=== PATIENT | male | born 1975 | race Caucasian/White ===

== ENCOUNTER 2019-10-11 09:35 | Emergency (ER) | payer OTHER, SELFPAY ==
--- NOTE | ~2019-10-11 | XR_ITS ---
XR ankle RT min 3V DATE: 10/11/2019 10:02 INDICATION: Twisted right ankle. Lateral pain. History of clubfoot. TECHNIQUE: 4 views COMPARISON: None FINDINGS: Minimal plantar calcaneal enthesopathy. No recent fracture or dislocation. No periosteal reaction or bone destruction. IMPRESSION: No recent fracture or dislocation Reviewed, dictated and finalized at location B.
--- NOTE | 2019-10-11 09:46 | ED.GENADULT ---
HPI - General Adult General Chief complaint: Extremity Injury, Lower Stated complaint: Sprained right ankle Source: patient and RN notes reviewed Mode of arrival: ambulatory Limitations: no limitations History of Present Illness HPI narrative: This is a 44 years old male presents to the office for an evaluation of right ankle injury since yesterday. He first rolled his ankle walking down on the ground at 11 AM and then again rolled his ankle in the evening fell into a hole. Complaint of constant pain and worse with weightbearing. Denies numbness or tingling. 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 He took ibuprofen and ice for pain this morning. Denies any other injury or dizziness prior to injury. Related Data Home Medications Medication Instructions Recorded Confirmed aspirin 06/25/19 citalopram mg 06/25/19 lisinopril-hydrochlorothiazide tablet 06/25/19 atorvastatin 20 mg PO DAILY 10/11/19 10/11/19 metformin 500 mg PO DAILY 10/11/19 10/11/19 venlafaxine 37.5 mg PO DAILY 10/11/19 10/11/19 Allergies Allergy/AdvReac Type Severity Reaction Status Date / Time No Known Allergies Allergy Unverified 09/06/14 14:46 Review of Systems Review of Systems: Narrative: CONSTITUTIONAL: Denies feeling ill CARDIOVASCULAR: Denies chest pain RESPIRATORY: Denies cough GASTROINTESTINAL: Denies nausea, vomiting GENITOURINARY: Denies urinary/bowel issue SKIN: Denies rash MUSCULOSKELETAL: Reports right ankle pain/swelling NEUROLOGIC: Denies numbness PMFSH Past Medical History Medical History (Updated 10/11/19 @ 09:57 by DUNIA Rajan) Arthritis Asthma History of hand fracture HLD (hyperlipidemia) HTN (hypertension) Surgical History Surgical History (Updated 10/11/19 @ 09:48 by DUNIA Rajan) Hx of neck surgery Comments At time of signature, I agree with nursing past medical, surgical, social and family history. There is no relevant family history pertinent to the presenting complaint. Exam Narrative: Exam Narrative: GENERAL: This is a well-nourished, well-developed patient, in no apparent distress. CARDIOVASCULAR: Regular rate and rhythm without murmurs, gallops, or rubs. RESPIRATORY: Clear to auscultation. Breath sounds equal bilaterally. No wheezes, rales, or rhonchi. GASTROINTESTINAL: Abdomen soft, non-tender, nondistended. Bowel sounds are active. No hepato-splenomegaly, or palpable masses. No guarding. SKIN: warm, intact with no suspicious lesions or rash, good texture and turgor. NEURO: awake, alert, and oriented to person, place and time. There were no obvious focal neurologic abnormalities. EXTREMITIES: Left foot intact. Right ankle is swollen and tender over the lateral aspect but the skin is intact and there is no ligamentous instability. There is no deformity. The foot and toes are warm and well-perfused. Sensation to pain and light touch is intact. Course Vital Signs Vital signs: Vital Signs Temperature 96.9 F L 10/11/19 09:50 Pulse Rate 86 10/11/19 09:50 Respiratory Rate 16 10/11/19 09:50 Blood Pressure 111/66 10/11/19 09:50 Pulse Oximetry 99 10/11/19 09:50 Temperature 96.9 F L 10/11/19 09:50 Pulse Rate 86 10/11/19 09:50 Respiratory Rate 16 10/11/19 09:50 Blood Pressure 111/66 10/11/19 09:50 Pulse Oximetry 99 10/11/19 09:50 Medical Decision Making MDM Narrative Medical decision making narrative: Discharge instructions reviewed with patient, as well as provided in writing per nursing staff. The instructions also include specific and strict return/GO TO THE ER as well as f/u information. All questions have been answered, and the patient deny any further questions with discharge and discharge plan. Differential Diagnosis Differential Diagnosis: sprain/strain, contusion, fracture, muscle pain Vital Signs Vital Signs: Vital Signs Temperature 96.9 F L 10/11/19 09:50 Pulse Rate 86 10/11/19 09:50 R
[2019-10-11 09:50] VITALS: BP 111/66; PULSE 86; RESP 16; TEMP 36.1; O2SAT 99
== END 2019-10-11 10:15 | disposition home or self-care (01) ==
PROVIDERS: Emergency Provider Nurse Practitioner; PCP Internal Medicine
DX: S99.911A Unspecified injury of right ankle, initial encounter (principal); X50.9XXA Other and unspecified overexertion or strenuous movements or postures, initial encounter; M19.90 Unspecified osteoarthritis, unspecified site; J45.909 Unspecified asthma, uncomplicated; E78.5 Hyperlipidemia, unspecified; I10 Essential (primary) hypertension
CPT/HCPCS: 73610; 99213; G0463

== ENCOUNTER 2022-01-15 14:48 | Outpatient (CLI) | payer OTHER, SELFPAY ==
--- NOTE | ~2022-01-15 | CT_ITS ---
EXAMINATION: CT cervical spine wo con DATE: 01/15/2022 15:05 INDICATION: Cervicalgia. Broken cervical fusion instrumentation. TECHNIQUE: Computed tomography (CT) of the cervical spine was performed without intravenous contrast. Automated exposure control and iterative reconstruction technique were employed. The dose-length pro duct was 571.17 mGy-cm. COMPARISON: Chest CT dated 04/06/2019 FINDINGS: Mild cervical kyphosis. C5-C7 anterior spinal fusion with anterior plate and screw fixation. There ar e fractures of the screws at both C5 and C7. The C7 screw fractures have been present at least since prior CT dated 04/06/2019. Which are both angled with the apex angulation directed towards the central C6 vertebral body which suggests increased kyphotic angulation of the vertebral bodies relative to t he alignment existing at the time of the initial fusion. There appears be solid osseous fusion betwee n C6 and C7. There is a thin irregular lucency between the C5 and C6 vertebral bodies suggesting thes e remain ununited. Unfused vertebral body heights are normal. Minimal disc height loss at C4-C5. Mild disc height loss at T1-T2 and T2-T3. Cervical soft tissues are unremarkable. Visualized apices of th e lungs are clear. The following disc levels are specifically discussed: C2-C3: There is mild bilateral uncovertebral joint osteoarthritis. There is moderate right and severe left facet joint osteoarthritis. There is mild left neural foraminal stenosis. There is no central c anal stenosis. C3-C4: There is mild bilateral uncovertebral joint osteoarthritis. There is mild bilateral facet suyapa nt osteoarthritis. There is no neural foraminal stenosis. There is no central canal stenosis. C4-C5: There is mild bilateral uncovertebral joint osteoarthritis. There is mild bilateral facet suyapa nt osteoarthritis. There is no neural foraminal stenosis. There is no central canal stenosis. C5-C6: The disc space and bilateral uncovertebral joints remain unfused with moderate left-sided and mild right-sided hypertrophic changes.. There is mild bilateral facet joint osteoarthritis. There is mild bilateral neural foraminal stenosis. There is mild central canal stenosis. C6-C7: Disc space and uncovertebral joints are fused. There is mild bilateral facet joint osteoarthri tis. There is mild bilateral neural foraminal stenosis. There is mild central canal stenosis. C7-T1: There is mild bilateral uncovertebral joint osteoarthritis. There is mild right and moderate left facet joint osteoarthritis. There is no neural foraminal stenosis. There is no central canal natalie nosis. IMPRESSION: 1. C5-C7 anterior spinal fusion with anterior plate and screw fixation and likely chronic fractures o f the fixation screws at C5 and C7. There is been some anterior subsidence resulting in mild cervical kyphosis and the C5-C6 disc space appears to remain unfused. 2. Otherwise mild cervical spondylosis. Reviewed, dictated and finalized at location A. IMPRESSION: 1. C5-C7 anterior spinal fusion with anterior plate and screw fixation and like ly chronic fractures of the fixation screws at C5 and C7. There is been some an terior subsidence resulting in mild cervical kyphosis and the C5-C6 disc space appears to remain unfused. 2. Otherwise mild cervical spondylosis.
--- NOTE | ~2022-01-15 | XR_ITS ---
EXAM: XR cervical spine 4-5V DATE: 01/15/2022 15:13 HISTORY: Cervicalgia, broken hardware, pain down both sides of neck . COMPARISON: None available. FINDINGS: Reversal of the normal cervical lordosis centered at C6-7. No acute fracture. Mild prevert ebral soft tissue swelling. C5-C7 ACDF, fractured proximal and distal screws, with no definite abnorm al surrounding lucency. Interbody bone plugs appear to be well positioned. IMPRESSION: ACDF at C5-C7, with hardware fractures involving the proximal and distal fixation screws. Reviewed, dictated and finalized at location K. IMPRESSION: ACDF at C5-C7, with hardware fractures involving the proximal and d istal fixation screws.
== END 2022-01-15 14:49 | disposition home or self-care (01) ==
LOC: ANHIMG 14:50
PROVIDERS: PCP Hospitalist; Visit Provider Neurological Surgery
DX: M47.892 Other spondylosis, cervical region (principal); Z98.1 Arthrodesis status
CPT/HCPCS: 72050; 72125

== ENCOUNTER 2022-02-04 14:44 | Outpatient (CLI) | payer OTHER, SELFPAY ==
--- NOTE | ~2022-02-04 | XR_ITS ---
EXAM: XR_CERV2-3V_CR DATE: 02/04/2022 15:04 HISTORY: repeat XR- test not done at last visit FLEX/EXT ONLY . COMPARISON: 01/15/2022. FINDINGS: C5-7 ACDF, with fractured superior and inferior screws. Incorporated bone plugs. No hardwa re loosening. Craniocervical association and atlantoaxial joint are aligned. No prevertebral soft tis jana swelling. No listhesis in extension. In flexion there is a 3 mm anterolisthesis of C2 on C3 and 1 mm anterolistheses of C3 on C4 and C4 on C5. Mild facet sclerosis. IMPRESSION: Dynamic listheses in flexion at C2-3, C3-4, and C4-5. ACDF hardware fracture, without itzel dence of loosening. Reviewed, dictated and finalized at location K. IMPRESSION: Dynamic listheses in flexion at C2-3, C3-4, and C4-5. ACDF hardware fracture, without evidence of loosening.
== END 2022-02-04 14:45 | disposition home or self-care (01) ==
PROVIDERS: PCP Hospitalist; Visit Provider Neurological Surgery
DX: M54.2 Cervicalgia (principal)
CPT/HCPCS: 72040

== ENCOUNTER 2022-07-28 12:59 | Emergency (ER) | payer OTHER, SELFPAY ==
--- NOTE | 2022-07-28 13:14 | ED.URI ---
HPI - URI/Sore Throat General Chief Complaint: Upper Respiratory Infection Stated Complaint: SOB,Cough,Congestion,Fatigue,Dizziness Source: patient and RN notes reviewed Mode of arrival: ambulatory Limitations: no limitations History of Present Illness HPI Narrative: 47-year-old male with history of asthma presents with concern for shortness of breath, dizziness, fatigue, congestion, cough that started 3-4 days ago. Reports his is sick as well. He denies any relief from tsll-qla-ohihlnt medications MD elicited complaint: cough and nasal congestion Related Data Home Medications Medication Instructions Recorded Confirmed aspirin 81 mg tablet,delayed 81 mg PO DAILY 06/25/19 07/28/22 release lisinopril 20 1 tablet PO DAILY 06/25/19 07/28/22 mg-hydrochlorothiazide 12.5 mg tablet metformin 500 mg tablet 500 mg PO DAILY 10/11/19 07/28/22 albuterol sulfate 90 mcg/actuation 2 puff inhalation Q4H PRN Pain 01/03/22 07/28/22 aerosol inhaler baclofen 10 mg tablet 10 mg PO TID 01/03/22 07/28/22 ezetimibe 10 mg tablet (Zetia) 10 mg PO DAILY 01/03/22 07/28/22 morphine 30 mg capsule,extended 30 mg PO BID 01/03/22 07/28/22 release 24 hr multiphase pregabalin 100 mg capsule 100 mg PO TID 01/03/22 07/28/22 ropinirole 1 mg tablet 2 mg PO QHS 03/20/22 07/28/22 oxycodone-acetaminophen 5 mg-325 1 tablet PO PRN PAIN 07/28/22 07/28/22 mg tablet Allergies Allergy/AdvReac Type Severity Reaction Status Date / Time No Known Allergies Allergy Verified 07/28/22 13:27 Review of Systems Review of Systems: CONSTITUTIONAL: Reports malaise, fatigue. EYES: Denies visual changes, redness, or discharge. ENT: Reports rhinorrhea, congestion. Denies sinus pain, otalgia and sore throat. CARDIOVASCULAR: Denies chest pain, palpitations, or edema. RESPIRATORY: Reports cough, dyspnea. GASTROINTESTINAL: Denies abdominal pain, nausea, vomiting, diarrhea SKIN: Denies rash or itching. MUSCULOSKELETAL: Denies myalgia. NEUROLOGIC: Denies headache. Reports dizziness All systems reviewed & are unremarkable except as noted in HPI and below PMFSH Past Medical History Medical History Arthritis Asthma History of hand fracture HLD (hyperlipidemia) HTN (hypertension) Surgical History Surgical History History of ankle surgery (Unknown) Hx of neck surgery Social History Social History Smoking status: Never smoker Smokeless tobacco user: chewing tobacco Comments At time of signature, agree with nursing past medical, surgical, social and family history. There is no relevant family history pertinent to the presenting complaint Exam Narrative: GENERAL: Nontoxic-appearing and in no acute distress. HEAD: Normocephalic EYES: PERRLA, conjunctivae clear ENT: Nares clear, turbinates edematous and erythematous, clear discharge. Mucous membranes moist. TM pearly laughlin with dull light reflex bilaterally; no tragal tenderness. Oropharynx not erythematous without lesions. Tonsils not enlarged and without exudate, no drooling, no hoarseness, no trismus, uvula midline. NECK: Supple. No lymphadenopathy CHEST: Clear to auscultation, breath sounds equal. No wheezing, rhonchi, rales, or stridor. No respiratory distress, speaks in full sentences. HEART: Regular rate and rhythm. No murmur heard. SKIN: Warm, dry, no rash. NEURO: Alert and oriented x3. PSYCH: Normal mood and affect Course Course Emergency Course: Patient is aware of diagnosis, understands and agrees to treatment plan. Anticipatory guidance given. Patient agrees to follow-up as directed and is aware of reasons to seek care at the emergency department. Portions of this record may have been created with voice recognition software Level of Care: Express Care Visit Vital Signs Vital signs: Reviewed. MDM - URI/Sore Throat MDM
[2022-07-28 13:16] VITALS: BP 147/88; PULSE 91; RESP 18; TEMP 37; O2SAT 96
== END 2022-07-28 14:37 | disposition home or self-care (01) ==
PROVIDERS: Emergency Provider Nurse Practitioner; PCP Hospitalist
DX: J06.9 Acute upper respiratory infection, unspecified (principal); E78.5 Hyperlipidemia, unspecified; I10 Essential (primary) hypertension; Z79.82 Long term (current) use of aspirin; Z79.84 Long term (current) use of oral hypoglycemic drugs; Z79.891 Long term (current) use of opiate analgesic; Z20.822 Contact with and (suspected) exposure to COVID-19
CPT/HCPCS: 87426; 87804; 99213; C9803; G0463

== ENCOUNTER 2022-08-31 11:54 | Outpatient (CLI) | payer OTHER, SELFPAY ==
--- NOTE | ~2022-08-31 | XR_ITS ---
XR_CERV2-3V_CR 08/31/2022 12:21 Indication: Neck pain Procedure: 2 view cervical spine Comparison: 02/04/2022 Findings: There are surgical fusion changes with discectomy at C5-C7. The screws at C5 and C7 are fra ctured. No evidence for loosening. Straightening of cervical lordosis. No prevertebral soft tissue sw elling. No acute fracture or traumatic malalignment. Lung apices are normal. Impression: 1: No acute abnormality of the cervical spine. No significant change from prior study allowing for te chnique. Reviewed, dictated and finalized at location A. INVESTIGATOR Impression: 1: No acute abnormality of the cervical spine. No significant change from prior study allowing for technique.
== END 2022-08-31 11:55 | disposition home or self-care (01) ==
PROVIDERS: PCP Hospitalist; Visit Provider Neurological Surgery
DX: M54.2 Cervicalgia (principal)
CPT/HCPCS: 72040

== ENCOUNTER 2023-05-01 18:30 | Emergency (ER) | payer MEDICARE, SELFPAY ==
--- NOTE | 2023-05-01 18:36 | ED.SKABFB ---
HPI - Skin/Abscess/Foreign Bdy General Chief complaint: Skin/Abscess/Foreign Body Stated complaint: Face Swelling and Pain Time Seen by Provider: 05/01/23 18:40 Source: patient Mode of arrival: ambulatory Limitations: no limitations History of Present Illness HPI narrative: Abdullahi is a 47-year-old male patient presenting to the clinic today with complaints of left-sided facial swelling and pain just below his left ear. Has a rash that developed around noon today. Reports that the pain in the rash is getting worse. States that the pain is radiating up into his left ear. No fever or chills. Related Data Home Medications Medication Instructions Recorded Confirmed aspirin 81 mg tablet,delayed 81 mg PO DAILY 06/25/19 05/01/23 release lisinopril 20 1 tablet PO DAILY 06/25/19 05/01/23 mg-hydrochlorothiazide 12.5 mg tablet ezetimibe 10 mg tablet (Zetia) 10 mg PO DAILY 01/03/22 05/01/23 pregabalin 100 mg capsule 100 mg PO TID 01/03/22 05/01/23 ropinirole 1 mg tablet 2 mg PO QHS 03/20/22 05/01/23 blood sugar diagnostic (WebPayuch 05/01/23 05/01/23 Ultra Test strips) blood-glucose meter (OneTouch 05/01/23 05/01/23 Verio Reflect Meter) fluoxetine 40 mg capsule 40 mg PO DAILY 05/01/23 05/01/23 fluticasone 250 mcg-salmeterol 50 2 inh inhalation DAILY 05/01/23 05/01/23 mcg/dose blistr powdr for inhalation lancets 33 gauge (OneTouch Delica 05/01/23 05/01/23 Plus Lancet) meloxicam 15 mg tablet 15 mg PO DAILY 05/01/23 05/01/23 metformin 1,000 mg tablet 1,000 mg PO DAILY 05/01/23 05/01/23 semaglutide 2 mg/dose (8 mg/3 mL) 2 mg subcut WEEKLY 05/01/23 05/01/23 subcutaneous pen injector (Ozempic) Allergies Allergy/AdvReac Type Severity Reaction Status Date / Time No Known Allergies Allergy Verified 05/01/23 18:42 Review of Systems Review of Systems: Pertinent positives per HPI. Patient denies any fever, chills, headache, visual changes, dizziness, cough, runny nose, sore throat, shortness of breath, chest pain, palpitations, nausea, vomiting, diarrhea, constipation, abdominal pain, or any urinary issues. [facility] Past Medical History Medical History Arthritis Asthma History of hand fracture HLD (hyperlipidemia) HTN (hypertension) Surgical History Surgical History History of ankle surgery (Unknown) Hx of neck surgery Social History Social History Smoking status: Never smoker Smokeless tobacco user: chewing tobacco Comments At the time of my signature, I reviewed and agree with the nursing past medical, surgical, social, and family history. There is no relevant family history pertinent to the patient complaint. Exam Narrative: General: Well-developed, well nourished, in no apparent distress Head: Normocephalic, atraumatic Eyes: Pupils equally round and reactive to light bilaterally, EOM intact, sclera and conjunctive clear, no discharge, lids normal Ears: TMs intact and clear, ear canals clear, no drainage, grossly hearing normal. Nose: Nares patent, no discharge, no inflammation, no sinus tenderness. Mouth: Oropharynx without lesions or masses, good dentition, MMM. Neck: Supple, trachea midline, no enlargement of anterior or posterior cervical nodes, no thyroid masses or goiter palpable. Cardio: Regular rate and rhythm, s1 and s2 normal, no murmur appreciated. Resp: Clear to auscultation bilaterally anteriorly and posteriorly, no rhonchi, rales, wheezing or rubs Integumentary: [place], warm, and dry, intact without lesion, no induration, red erythematous base vesicular rash to the left lower jaw in the mckinney line with pain radiating up into the left ear Course Course Emergency Course: Portions of this record may have been created with voice recognition software. Level of Care: Express Care Visit Vital
[2023-05-01 18:45] VITALS: BP 137/88; PULSE 96; RESP 18; TEMP 36.4; O2SAT 97
[2023-05-01 18:52] VITALS: BP 137/88; PULSE 96; RESP 18; TEMP 36.4; O2SAT 97
== END 2023-05-01 18:54 | disposition home or self-care (01) ==
PROVIDERS: Emergency Provider Nurse Practitioner Family; PCP Internal Medicine
DX: B02.9 Zoster without complications (principal); M19.90 Unspecified osteoarthritis, unspecified site; J45.909 Unspecified asthma, uncomplicated; E78.5 Hyperlipidemia, unspecified; I10 Essential (primary) hypertension; Z79.82 Long term (current) use of aspirin
CPT/HCPCS: 99213; G0463

== ENCOUNTER 2023-08-15 19:20 | Emergency (ER) | payer MEDICARE, SELFPAY ==
--- NOTE | ~2023-08-15 | XR_ITS ---
EXAMINATION: XR chest 1V portable Exam Date/Time: 08/15/2023 19:23 SOCIETY EDITOR HISTORY: cp Comparison: 04/06/2019. RESULT: Lines, tubes, and devices: Partially visualized cervical fusion hardware. Lungs and pleura: Clear. Cardiomediastinal silhouette: Stable. Other: No acute osseous or upper abdominal finding. IMPRESSION: No acute cardiopulmonary process. Reviewed, dictated and finalized at location K. ETY EDITOR
--- NOTE | 2023-08-15 19:21 | ECG_ITS ---
Measurements Intervals [place] Rate: 103 P: OR: 0 QRS: -38 QRSD: 109 T: 80 QT: 337 QTc: 442 Interpretive Statements SINUS TACHYCARDIA LEFTWARD ACCESS LOW QRS VOLTAGE IN PRECORDIAL LEADS INCOMPLETE RIGHT BUNDLE BRANCH BLOCK POSSIBLE SEPTAL MYOCARDIAL INFARCTION , OF INDETERMINATE AGE Electronically Signed On 08-16-2023 11:35:49 MANAGER HYDRAULIC by Ancelmo Victoria M.D.
[2023-08-15 19:23] VITALS: BP 153/98; PULSE 100; RESP 12; TEMP 36.6; O2SAT 94
[2023-08-15 19:26] VITALS: BP 153/98; PULSE 105; RESP 16; O2SAT 98
[2023-08-15 19:31] VITALS: BP 148/90; PULSE 104; RESP 20
[2023-08-15 19:43] LABS: Basophils Percent Auto 0.5 % (0.2-1.2); Eosinophils Absolute Auto 0.2 K/mm3 (0-0.3); Eosinophils Percent Auto 2.7 % (0-4.4); Hematocrit 40.6 % (42.0-52.0); Hemoglobin 13.4 g/dL (14.0-18.0); Immature Granulocyte Absolute 0.03 K/mm3 (0.00-0.031); Immature Granulocyte Percent A 0.4 % (0-0.5); Lymphocytes Percent Auto 25.9 % (18.3-44.2); Mean Corpuscular Volume 90.8 fl (80-100); Mean Platelet Volume 8.6 fl (7.4-10.4); Monocytes Absolute Auto 0.7 K/mm3 (0.1-0.6); Monocytes Percent Auto 9.8 % (2.6-8.5); Neutrophils Absolute Auto 4.5 K/mm3 (1.3-6.7); Neutrophils Percent Auto 60.7 % (45.5-73.1); Platelet Count Result 213 k/mm3 (150-375); Red Blood Count 4.47 M/mm3 (4.6-6.20); Red Cell Distribution Width 12.8 % (11.5-14.5); White Blood Count 7.3 K/mm3 (4.5-10.0)
[2023-08-15 19:44] VITALS: BP 148/90
[2023-08-15] MEDS: NITROGLYCERIN SL 0.4 MG TABLET SUBLINGUAL (19:46)
[2023-08-15] MEDS: ASPIRIN 81 MG CHEWABLE TABLET 324 MG PO (19:46)
[2023-08-15 19:57] LABS: INR 0.9; Prothrombin Time 12.4 Seconds (11.1-14.7)
[2023-08-15 20:00] LABS: Partial Thromboplastin Time 28.3 SECONDS (22.3-36.8)
[2023-08-15 20:03] LABS: Alanine Aminotransferase 55 U/L (6-50); Albumin Level 3.9 g/dL (3.5-5.1); Alkaline Phosphatase 73 U/L (38-126); Anion Gap 6 mmol/L (8-16); Aspartate Amino Transferase 53 U/L (17-59); Bilirubin,Total 0.7 mg/dL (0.2-1.3); Blood Urea Nitrogen 17 mg/dL (9-20); Calcium 9.7 mg/dL (8.4-10.2); Carbon Dioxide 27 mmol/L (22-30); Chloride 103 mmol/L (98-107); Estimated CRCL calculation 129 ml/min; Estimated Glomerular Filt Rate > 60; Glucose 181 mg/dL (65-110); Lipase 77 U/L (23-300); Potassium 4.1 mmol/L (3.4-5.0); Sodium 136 mmol/L (137-145)
[2023-08-15 20:14] LABS: Troponin I < 0.012 ng/mL (0.000-0.034)
--- NOTE | 2023-08-15 20:32 | ECG_ITS ---
Measurements Intervals [place] Rate: 118 P: 55 AL: 170 QRS: -43 QRSD: 107 T: 85 QT: 335 QTc: 470 Interpretive Statements SINUS TACHYCARDIA LEFT AXIS DEVIATION INCOMPLETE RIGHT BUNDLE BRANCH BLOCK LEFT VENTRICULAR HYPERTROPHY AND ST-T CHANGE POSSIBLE ANTEROSEPTAL MYOCARDIAL INFARCTION , OF INDETERMINATE AGE Electronically Signed On 08-16-2023 11:36:41 RADIOSONDE SPECIALIST by Ancelmo Victoria M.D.
[2023-08-15 20:40] LABS: D Dimer < 0.27 ug/mL (<0.48)
[2023-08-15] MEDS: MORPHINE SULFATE (*CRX) 4 MG/ML INJ IV PUSH (20:41)
[2023-08-15 21:01] VITALS: BP 129/71; PULSE 99; RESP 16; O2SAT 97
[2023-08-15 21:15] VITALS: PULSE 98; RESP 18; O2SAT 98
--- NOTE | 2023-08-15 22:57 | ECG_ITS ---
Measurements Intervals [place] Rate: 84 P: 54 FL: 166 QRS: -38 QRSD: 112 T: 51 QT: 373 QTc: 441 Interpretive Statements SINUS RHYTHM LEFT AXIS DEVIATION INCOMPLETE RIGHT BUNDLE BRANCH BLOCK POSSIBLE LEFT VENTRICULAR HYPERTROPHY Electronically Signed On 08-16-2023 11:37:19 GYMNASTICS COACH OR INSTRUCTOR by Ancelmo Victoria M.D.
[2023-08-15 23:22] LABS: Troponin I < 0.012 ng/mL (0.000-0.034)
--- NOTE | 2023-08-16 00:28 | ED.GENADULT ---
HPI - General Adult General Chief complaint: Chest Pain Stated complaint: chest pain Time Seen by Provider: 08/15/23 19:30 History of Present Illness HPI narrative: Patient is a 48-year-old male who presents emergency department with chief complaint of chest pain. The patient reports he was upstairs visiting his who is in the hospital and started having some tightness in his chest the patient does report that he had good significant workout earlier today but states that this was different. The patient does report that he does have a stress test scheduled in the near future. Patient reports that he is feeling somewhat better at this point Related Data Home Medications Medication Instructions Recorded Confirmed aspirin 81 mg tablet,delayed 81 mg PO DAILY 06/25/19 05/01/23 release lisinopril 20 1 tablet PO DAILY 06/25/19 05/01/23 mg-hydrochlorothiazide 12.5 mg tablet ezetimibe 10 mg tablet (Zetia) 10 mg PO DAILY 01/03/22 05/01/23 pregabalin 100 mg capsule 100 mg PO TID 01/03/22 05/01/23 ropinirole 1 mg tablet 2 mg PO QHS 03/20/22 05/01/23 blood sugar diagnostic (PerspecSysuch 05/01/23 05/01/23 Ultra Test strips) blood-glucose meter ([employer] - OnvelopTouch 05/01/23 05/01/23 Verio Reflect Meter) fluoxetine 40 mg capsule 40 mg PO DAILY 05/01/23 05/01/23 fluticasone 250 mcg-salmeterol 50 2 inh inhalation DAILY 05/01/23 05/01/23 mcg/dose blistr powdr for inhalation lancets 33 gauge (OneTouch Delica 05/01/23 05/01/23 Plus Lancet) meloxicam 15 mg tablet 15 mg PO DAILY 05/01/23 05/01/23 metformin 1,000 mg tablet 1,000 mg PO DAILY 05/01/23 05/01/23 semaglutide 2 mg/dose (8 mg/3 mL) 2 mg subcut WEEKLY 05/01/23 05/01/23 subcutaneous pen injector (Ozempic) Allergies Allergy/AdvReac Type Severity Reaction Status Date / Time No Known Allergies Allergy Verified 05/01/23 18:42 Review of Systems Review of Systems: A 10 system review of systems was completed on the patient and is negative except for what is stated in the HPI. Nursing and ancillary documentation was reviewed. [facility] Past Medical History Medical History Arthritis Asthma History of hand fracture HLD (hyperlipidemia) HTN (hypertension) Surgical History Surgical History History of ankle surgery (Unknown) Hx of neck surgery Social History Social History Smoking status: Never smoker Smokeless tobacco user: chewing tobacco Exam Narrative: GENERAL: Well-appearing, well-nourished, and in no acute distress. HEAD: Normocephalic, atraumatic. EYES: PERRLA and EOMI. ENT: Nares clear, no rhinorrhea or epistaxis. Mucous membranes moist. NECK: Supple. CHEST: Clear to auscultation. No respiratory distress. HEART: Regular rate and rhythm. No murmur heard. Normal peripheral pulses. ABDOMEN: Soft, nontender, nondistended, normal active bowel sounds. EXTREMITIES: Normal range of motion. No edema. SKIN: Warm, dry, no rash. NEURO: No focal deficits. Alert and oriented x3. PSYCH: Normal mood and affect. Course Vital Signs Vital signs: Vital Signs Temperature 36.6 C 08/15/23 19:23 Pulse Rate 100 08/15/23 19:23 Respiratory Rate 12 08/15/23 19:23 Blood Pressure 153/98 H 08/15/23 19:23 Pulse Oximetry 94 08/15/23 19:23 Oxygen Delivery Room Air 08/15/23 19:23 Temperature 36.6 C 08/15/23 19:23 Pulse Rate 98 08/15/23 21:15 Respiratory Rate 18 08/15/23 21:15 Blood Pressure 129/71 08/15/23 21:01 Pulse Oximetry 98 08/15/23 21:15 Oxygen Delivery Room Air 08/15/23 19:23 Medical Decision Making MDM Narrative Medical decision making narrative: differential diagnosis includes ACS, noncardiac chest pain, gastroesophageal reflux disease, chest wall pain, viral syndrome EKG showed no evidence of acute ST-elevat
== END 2023-08-16 00:42 | disposition home or self-care (01) ==
PROVIDERS: Emergency Medicine; Emergency Provider Emergency Medicine; PCP Internal Medicine
DX: R07.89 Other chest pain (principal); J45.909 Unspecified asthma, uncomplicated; E78.5 Hyperlipidemia, unspecified; I10 Essential (primary) hypertension; E11.9 Type 2 diabetes mellitus without complications; M19.90 Unspecified osteoarthritis, unspecified site; F17.220 Nicotine dependence, chewing tobacco, uncomplicated; Z79.84 Long term (current) use of oral hypoglycemic drugs; Z79.85 Long-term (current) use of injectable non-insulin antidiabetic drugs; Z79.82 Long term (current) use of aspirin; I45.10 Unspecified right bundle-branch block; R94.31 Abnormal electrocardiogram [ECG] [EKG]; R00.0 Tachycardia, unspecified; I51.7 Cardiomegaly
CPT/HCPCS: 36415; 71045; 80053; 83690; 84484; 85025; 85380; 85610; 85730; 93005; 96374; 99284; A9270; J2270

== ENCOUNTER 2024-02-27 12:29 | Emergency (ER) | payer MEDICARE, SELFPAY ==
[2024-02-27 12:33] VITALS: BP 142/105; PULSE 104; RESP 19; O2SAT 95
--- NOTE | 2024-02-27 14:00 | PC.NURSE ---
Pt will be leaving without being seen. Will call PCP. A&Ox4.
== END 2024-02-27 14:44 | disposition left against medical advice (07) ==
LOC: ANHED 14:08
PROVIDERS: PCP Internal Medicine
DX: M25.562 Pain in left knee (principal)
CPT/HCPCS: 99199

== ENCOUNTER 2024-04-11 10:57 | Emergency (ER) | payer MEDICARE, SELFPAY ==
[2024-04-11 11:04] VITALS: BP 115/79; PULSE 97; RESP 16; TEMP 35.8; O2SAT 97
[2024-04-11 11:14] VITALS: BP 115/79; PULSE 97; RESP 16; TEMP 35.8; O2SAT 97
--- NOTE | 2024-04-11 11:22 | ED.URI ---
HPI - URI/Sore Throat General Chief Complaint: Upper Respiratory Infection Stated Complaint: Chest Congestion /sinus pressure Time Seen by Provider: 04/11/24 11:22 Source: patient, RN notes reviewed and old records reviewed Mode of arrival: ambulatory Limitations: no limitations History of Present Illness HPI Narrative: 48-year-old male presents to the [facility] with complaints sinus pressure, chest congestion for over 1 week. States he had a use his albuterol inhaler yesterday HX of Asthma. HX of diabetes. Per patient's Dexcom blood sugar 116 Onset (ago): week(s) (Over 1 week) Related Data Home Medications Medication Instructions Recorded Confirmed aspirin 81 mg tablet,delayed 81 mg PO DAILY 06/25/19 04/11/24 release ezetimibe 10 mg tablet (Zetia) 10 mg PO DAILY 01/03/22 04/11/24 pregabalin 100 mg capsule 100 mg PO TID 01/03/22 04/11/24 ropinirole 1 mg tablet 2 mg PO QHS 03/20/22 04/11/24 blood sugar diagnostic ([employer] 05/01/23 04/11/24 Ultra Test strips) blood-glucose meter ([employer] 05/01/23 04/11/24 Verio Reflect Meter) fluoxetine 40 mg capsule 40 mg PO DAILY 05/01/23 04/11/24 fluticasone 250 mcg-salmeterol 50 2 inh inhalation DAILY 05/01/23 04/11/24 mcg/dose blistr powdr for inhalation lancets 33 gauge ([employer] 05/01/23 04/11/24 Plus Lancet) meloxicam 15 mg tablet 15 mg PO DAILY 05/01/23 04/11/24 metformin 1,000 mg tablet 1,000 mg PO BID 05/01/23 04/11/24 atorvastatin 40 mg tablet 40 mg PO DAILY 04/11/24 04/11/24 baclofen 10 mg tablet 10 mg PO PRN PRN Muscle Spasm 04/11/24 04/11/24 blood-glucose sensor (Dexcom G7 04/11/24 04/11/24 Sensor device) insulin glargine U-300 conc 300 38 unit subcut HS 04/11/24 04/11/24 unit/mL (1.5 mL) subcutaneous pen (Elmer Singh U-300 Insulin) lisinopril 10 mg tablet 10 mg PO DAILY 04/11/24 04/11/24 pen needle, diabetic 32 gauge x 04/11/24 04/11/24 5/32 (Embrace Pen Needle) semaglutide 2 mg/dose (8 mg/3 mL) 8 mg subcut WEEKLY 04/11/24 04/11/24 subcutaneous pen injector (Ozempic) sertraline 100 mg tablet 100 mg PO DAILY 04/11/24 04/11/24 Allergies Allergy/AdvReac Type Severity Reaction Status Date / Time No Known Allergies Allergy Verified 04/11/24 11:01 Review of Systems Review of Systems: All systems reviewed & are unremarkable except as noted in HPI and below Constitutional: Constitutional: Reports no additional constitutional complaints Eyes: Eyes: Reports no additional eye complaints ENT: Reports as per HPI and Reports nasal congestion Cardiovascular: Cardiovascular: Reports no additional cardiovascular complaints, Denies chest pain and Denies dyspnea Respiratory: Respiratory: Reports as per HPI, Reports chest congestion, Reports cough and Denies dyspnea Gastrointestinal: Gastrointestinal: Reports no additional gastrointestinal complaints, Denies abdominal pain, Denies nausea and Denies vomiting Musculoskeletal: Musculoskeletal: Reports no additional musculoskeletal complaints Integumentary/Breasts: Skin/Breast: Reports system reviewed and no additional complaints, except as docu Neurologic: Reports system reviewed and no additional complaints, except as documented Psychiatric: Psychiatric: Reports no additional psychiatric complaints Allergic/Immunologic: Allergic/Immunologic: Reports no additional allergic/immunologic complaints [facility] Past Medical History Medical History Arthritis Asthma History of hand fracture HLD (hyperlipidemia) HTN (hypertension) Surgical History Surgical History History of ankle surgery (Unknown) Hx of neck surgery Social History Social History Smoking status: Never smoker Smokeless tobacco user: chewing tobacco Comments At the time of my signature, I reviewed and agree with the nursing past medical, surgi
== END 2024-04-11 11:44 | disposition home or self-care (01) ==
PROVIDERS: Emergency Provider Nurse Practitioner; PCP Internal Medicine
DX: J40 Bronchitis, not specified as acute or chronic (principal); J32.9 Chronic sinusitis, unspecified; I10 Essential (primary) hypertension; E78.5 Hyperlipidemia, unspecified; J45.909 Unspecified asthma, uncomplicated; M19.90 Unspecified osteoarthritis, unspecified site; Z79.82 Long term (current) use of aspirin
CPT/HCPCS: 99213; G0463